=== PATIENT | female | born 1980 | race Caucasian/White ===

== ENCOUNTER 2019-08-27 03:03 | Emergency (ER) | payer MEDICAID ==
[~2019-08-27] VITALS: Ht 154.9 cm; Wt 70.9 kg
--- NOTE | 2019-08-27 03:36 | NUR ---
PT REPORTS AN EPISODE OF CHEST PRESSURE, SHORTNESS OF BREATH AND NAUSEA WHILE DRIVING THIS MORNING. REPORTS CHEST PRESSURE SUBSIDED BUT SHE WAS SHORT OF BREATH WHEN TRYING TO SLEEP AND REPORTS TINGLING DOWN RIGHT ARM. DENIES CARDIAC HX.
[2019-08-27 03:50] LABS: BASOPHILS # (AUTO) 0.12 x10^3/uL (0-0.1); BASOPHILS % (AUTO) 1 % (0-1); EOSINOPHILS # (AUTO) 0.34 x10^3/uL (0-0.4); EOSINOPHILS % (AUTO) 2 % (1-7); LYMPHOCYTES # (AUTO) 4.12 x10^3/uL (1-3.4); LYMPHOCYTES % (AUTO) 30 % (22-44); MD NO; MEAN CORPUSCULAR HEMOGLOBIN 30.6 pg (27.0-34.8); MEAN CORPUSCULAR HGB CONC 33.4 g/dL (32.4-35.8); MEAN CORPUSCULAR VOLUME 91.8 fL (80-100); MEAN PLATELET VOLUME 9.5 fL (7.4-10.4); MONOCYTES # (AUTO) 0.72 x10^3/uL (0.2-0.8); MONOCYTES % (AUTO) 5 % (2-9); NEUTROPHILS # (AUTO) 8.68 x10^3/uL (1.8-6.8); NEUTROPHILS % (AUTO) 62 % (42-75); PLATELET COUNT 284 x10^3/uL (130-400); RED BLOOD COUNT 4.58 x10^6/uL (3.82-5.3); RED CELL DISTRIBUTION WIDTH 13.3 % (9.6-15.2)
[2019-08-27 03:59] LABS: ALBUMIN 3.7 g/dL (3.4-5.0); ANION GAP 7 mmol/L (5-15); CALCIUM 8.7 mg/dL (8.5-10.1); CHLORIDE 108 mmol/L (98-107); CREATININE 0.75 mg/dL (0.55-1.02)
[2019-08-27 04:03] LABS: TROPONIN I < 0.015 ng/mL (0.000-0.045)
[2019-08-27 05:23] VITALS: BP 117/72
== END 2019-08-27 05:25 | disposition home or self-care (01) ==
LOC: ED 04:21
DX: R06.00 Dyspnea, unspecified (principal); F41.1 Generalized anxiety disorder; R42 Dizziness and giddiness; R11.0 Nausea; R94.31 Abnormal electrocardiogram [ECG] [EKG]
CPT/HCPCS: 36415; 71045; 80048; 82040; 84484; 85025; 85379; 93005; 99285; Q0177

== ENCOUNTER 2020-02-04 02:48 | Emergency (ER) | payer MEDICAID ==
[~2020-02-04] VITALS: Ht 154.9 cm; Wt 72.2 kg
[2020-02-04 02:53] VITALS: BP 120/76
[2020-02-04] MEDS ORDERED: ONDANSETRON ODT 4 MG ONE (03:18)
[2020-02-04] MEDS ORDERED: ONDANSETRON 0.8 MG/ML ORAL SOL PO SCH (03:30)
[2020-02-04 03:44] LABS: BASOPHILS % (AUTO) 1 % (0-1); EOSINOPHILS % (AUTO) 3 % (1-7); LYMPHOCYTES % (AUTO) 32 % (22-44); MEAN CORPUSCULAR HEMOGLOBIN 30.3 pg (27.0-34.8); MEAN CORPUSCULAR HGB CONC 33.3 g/dL (32.4-35.8); MEAN PLATELET VOLUME 9.6 fL (7.4-10.4); MONOCYTES % (AUTO) 7 % (2-9); NEUTROPHILS % (AUTO) 58 % (42-75); PLATELET COUNT 309 x10^3/uL (130-400); RED BLOOD COUNT 4.53 x10^6/uL (3.82-5.3); RED CELL DISTRIBUTION WIDTH 14.2 % (9.6-15.2)
[2020-02-04 03:49] LABS: ALBUMIN 3.6 g/dL (3.4-5.0); ANION GAP 6 mmol/L (5-15); CALCIUM 8.7 mg/dL (8.5-10.1); CHLORIDE 109 mmol/L (98-107)
[2020-02-04 03:54] LABS: CREATININE 0.71 mg/dL (0.55-1.02); TROPONIN I < 0.015 ng/mL (0.000-0.045)
[2020-02-04 04:29] LABS: MD SCAN
== END 2020-02-04 05:30 | disposition home or self-care (01) ==
LOC: ED 05:28
DX: R55 Syncope and collapse (principal); R07.89 Other chest pain; R42 Dizziness and giddiness; R11.0 Nausea; R41.82 Altered mental status, unspecified
CPT/HCPCS: 36415; 71045; 80048; 82040; 84484; 84703; 85025; 93005; 99285; Q0162

== ENCOUNTER 2020-04-27 21:37 | Emergency (ER) | payer MEDICAID ==
[~2020-04-27] VITALS: Ht 154.9 cm; Wt 73.2 kg
[2020-04-27 21:44] VITALS: BP 126/78
--- NOTE | 2020-04-27 21:47 | NUR ---
CUSTOMER RELATIONS ASSISTANT: EKG DONE IN TRIAGE AT THIS TIME.
--- NOTE | 2020-04-27 22:15 | NUR ---
not in lobby
--- NOTE | 2020-04-27 22:34 | NUR ---
not in lobby
== END 2020-04-27 22:51 ==
LOC: ED 22:30
DX: R51.9 Headache, unspecified (principal); R42 Dizziness and giddiness; R07.9 Chest pain, unspecified; Z53.21 Procedure and treatment not carried out due to patient leaving prior to being seen by health care provider
CPT/HCPCS: 93005; 99283

== ENCOUNTER 2020-07-14 08:20 | Emergency (ER) | payer MEDICAID ==
[~2020-07-14] VITALS: Ht 154.9 cm; Wt 75.6 kg
--- NOTE | 2020-07-14 08:32 | NUR ---
patient arrives to er with one week hx of left sided numbness/tingling. she states bells palsy hx three years ago. no other symptoms.
--- NOTE | 2020-07-14 08:48 | NUR ---
alerted pa that patient had some left sided droop to smile and tingling left lower upper extremities one week, not hypertensive, on monitor, aox4 hx [place] Palsy. iv in place, labs sent. no orders to go straight to ct
[2020-07-14 09:12] VITALS: BP 131/75
--- NOTE | 2020-07-14 09:14 | NUR ---
DISCHARGE REVIEWED. SHOWS UNDERSTANDING.
== END 2020-07-14 09:24 | disposition home or self-care (01) ==
LOC: ED 09:18
DX: G51.0 Bell's palsy (principal); R94.31 Abnormal electrocardiogram [ECG] [EKG]
CPT/HCPCS: 93005; 99283

== ENCOUNTER 2020-11-12 00:04 | Emergency (ER) | payer MEDICAID ==
[~2020-11-12] VITALS: Ht 157.5 cm; Wt 70.8 kg
--- NOTE | 2020-11-12 00:13 | NUR ---
Left droop noted, however pt states this is chronic secondary to her [place] Palsy and that her facial folds/droop is noticeable and normally like this. No other appreciable neuro deficits at this time in triage.
[2020-11-12] MEDS ORDERED: PROCHLORPERAZINE 5 MG/ML, 2ML IM ONE (01:00)
[2020-11-12] MEDS ORDERED: DIPHENHYDRAMINE 25 MG CAPSULE PO ONE (01:00)
[2020-11-12] MEDS ORDERED: ACETAMINOPHEN 325 MG TABLET PO ONE (01:00)
[2020-11-12] MEDS ORDERED: DIPHENHYDRAMINE 25 MG CAPSULE ONE (01:08)
[2020-11-12] MEDS ORDERED: PROCHLORPERAZINE 5 MG/ML, 2ML ONE (01:08)
[2020-11-12] MEDS ORDERED: ACETAMINOPHEN 500 MG TABLET ONE (01:08)
[2020-11-12 01:46] VITALS: BP 116/73
--- NOTE | 2020-11-12 01:46 | NUR ---
BREAK RN: Patient is resting comfortably in bed. Bed in lowest, rails engaged, call light on lap. Vital Signs within normal limits. MONITORING IN PLACE. PROVIDED WARM BLANKETS FOR COMFORT. DENIES ADDITIONAL QUESTIONS OR NEEDS AT THIS TIME. WAITING FOR LAB RESULTS AND CT. WCTM.
[2020-11-12 01:53] LABS: BASOPHILS % (AUTO) 0 % (0-1); EOSINOPHILS % (AUTO) 3 % (1-7); LYMPHOCYTES % (AUTO) 28 % (22-44); MEAN CORPUSCULAR HEMOGLOBIN 30.8 pg (27.0-34.8); MEAN CORPUSCULAR HGB CONC 33.6 g/dL (32.4-35.8); MEAN PLATELET VOLUME 9.2 fL (7.4-10.4); MONOCYTES % (AUTO) 7 % (2-9); NEUTROPHILS % (AUTO) 62 % (42-75); PLATELET COUNT 275 x10^3/uL (130-400); RED BLOOD COUNT 4.66 x10^6/uL (3.82-5.3); RED CELL DISTRIBUTION WIDTH 13.2 % (9.6-15.2)
[2020-11-12 02:03] LABS: ALBUMIN 3.4 g/dL (3.4-5.0); ANION GAP 5 mmol/L (5-15); CALCIUM 8.9 mg/dL (8.5-10.1); CHLORIDE 106 mmol/L (98-107); CREATININE 0.54 mg/dL (0.55-1.02)
--- NOTE | 2020-11-12 02:51 | NUR ---
pt states she is feeling better. aware chart up for review. will ctm.
[2020-11-12] MEDS ORDERED: KETOROLAC 30 MG/1 ML IVPush ONE (03:00)
[2020-11-12] MEDS ORDERED: KETOROLAC 30 MG/1 ML ONE (03:03)
== END 2020-11-12 03:15 | disposition home or self-care (01) ==
LOC: ED 01:01
DX: R51.9 Headache, unspecified (principal); R11.0 Nausea; R53.1 Weakness; Z90.89 Acquired absence of other organs; Z90.49 Acquired absence of other specified parts of digestive tract
CPT/HCPCS: 36415; 70450; 80048; 82040; 84703; 85025; 96372; 96374; 99285; J0780; J1885; Q0163